=== PATIENT | male | born 1955 | race Caucasian/White ===

== ENCOUNTER 2017-08-11 16:53 | Emergency (ER) | payer OTHER ==
[~2017-08-11] VITALS: Ht 175.3 cm; Wt 63.5 kg
[~2017-08-11 16:53] MED LIST: ASPIRIN81 M4 PO; ATORVASTATIN CA80 M1 PO; BRILINTA90 M1 PO; LISINOPRIL5 M1 PO; PANTOPRAZOLE SO40 M1 PO; TOPROL XL50 M1 PO
[2017-08-11 17:01] VITALS: BP 123/78
--- NOTE | 2017-08-11 17:01 | ED MVC/FALL/TRAUMA COMPLAINT ---
History of Present Illness General Chief Complaint: Fall Stated Complaint: BIBA TRIP AND FALL Source: patient, family Exam Limitations: no limitations Vital Signs & Intake/Output Vital Signs & Intake/Output Vital Signs Date Time Temp Pulse Resp B/P B/P Pulse O2 O2 Flow FiO2 Mean Ox Delivery Rate 08/11 1721 Room Air 08/11 1701 97.2 84 18 123/78 96 Room Air Allergies Coded Allergies: No Known Allergies (06/27/17) Reconcile Medications Aspirin (Aspirin*) 81 MG TAB.CHEW 1 TAB PO DAILY HEART HEALTH (Reported) Atorvastatin Calcium 80 MG TABLET 1 TAB PO DAILY AK (Reported) Lisinopril 5 MG TABLET 1 TAB PO DAILY (Reported) Metoprolol Succ XL (Toprol Xl) 50 MG TAB 1 TAB PO DAILY (Reported) Pantoprazole Sodium 40 MG TABLET.DR 1 TAB PO DAILY GERD (Reported) Ticagrelor (Brilinta) 90 MG TABLET 1 TAB PO BID AK (Reported) Triage Note: PT BIBA FROM HOME S/P TRIP AND FALL DOWN A FEW STEPS THIS AM. PT HIT HEAD, DENIES LOC, PT ON BRILINTA. NO ACTIVE BLEEDING NOTED. NEUROS INTACT. PT DENIES HEAD/NECK PAIN. COLLARED BY EMS. +ETOH, PT REPORTS HAD A FEW BEERS TODAY. Triage Nurses Notes Reviewed? yes Onset: Abrupt Duration: hour(s): (6) Timing: no prior history Severity: mild Severity Numbers: 5 Injuries/Fall Location: head, lower extremity Method of Injury: fall Loss of Consciousness: no loss of consciousness Modifying Factors: Worsens With: movement, palpation. HPI: Patient is a 7-year-old male with recent history of CVA and heart attack presenting to the emergency department complaint of fall this morning. Patient reports that he was going outside to feed his cat and accidentally tripped over one step. Landing directly on his head on the right side. Patient does take Proventil daily. He was applying ice all day. Decided to call his doctor and his doctor recommended him coming in for evaluation secondary to the fall. Patient denies any LOC with the fall. No nausea vomiting fevers chills chest pain or shortness of breath. Denies any visual changes. Denies neck pain or back pain. Denies taking anything specific for the discomfort prior to arrival. No fevers or chills. (Queenie MCCRACKEN,Adriana) Past History Travel History Traveled to [place] past 21 day No Medical History Any Pertinent Medical History? see below for history Neurological: NONE EENT: NONE Cardiovascular: myocardial infarction, PVD Respiratory: NONE Gastrointestinal: NONE Hepatic: NONE Renal: NONE Musculoskeletal: fracture, C-SPINE FX 1996 W/REPAIR Psychiatric: NONE Endocrine: NONE Blood Disorders: NONE Cancer(s): NONE DENTAL LAB TECHNICIAN/Reproductive: NONE History of MRSA: No History of VRE: No History of CDIFF: No Influenza Vaccine: 04/14/17 Surgical History Surgical History: C-SPINE SURGERY 1996 Psychosocial History Who do you live with Spouse What is your primary language Belarusian Family History Hx Contributory? No (Adriana Richardson) Review of Systems Review of Systems Constitutional: Reports: no symptoms. Comments Review of systems: See HPI, All other systems negative. Constitutional, no chills fever or weight loss HEENT: No visual changes no sore throat no congestion Cardiovascular: No chest pain ,palpitation , orthopnea or ankle swelling Skin, no jaundice no rashes Respiratory: No dyspnea cough sputum or hemoptysis GI: No nausea no vomiting Muscle skeletal: no back pain, no neck pain, Neurologic: No numbness no confusion Psych: No stress anxiety or depression,. Heme/endocrine: No bruising no bleeding no polyuria or polydipsia Immunology: No splenectomy or history of AIDS (Adriana Richardson) Physical Exam Physical Exam General Appearance: well developed/nourished, no apparent distress, alert, awake , comfortable Comments: Well-developed well-nourished person in no acute distress, smells of tobacco HEENT: extraocular motion intact, no nystagmus. Pupils equally round and reactive to light and accommodation. Nose is atraumatic. External auditory canal and Tympanic membranes clear. Pharynx normal. No swelling or edema. Large hematoma approximately 8 cm in size noted over the right tonsil lobe. Mildly tender to palpation. No step-off deformities palpated on the rest of the scalp. Neck: Supple, no lymphadenopathy, normal range of motion without pain or tenderness in c-collar, no palpable pain through the c-collar over the C-spine. Back: Nontender, no step-off deformities palpated over the thoracic or lumbar spine. Cardiovascular: Regular rate and rhythms no murmurs rubs or gallops, normal JVP Respiratory: No respiratory distress.breath sounds clear to auscultation bilaterally Extremity: No edema, no calf tenderness to palpation, normal and equal pulses. Full range of motion of upper and lower extremities without difficulty or pain. [employer] Team Leader strength is equal and symmetric bilaterally. Neuro: Alert oriented x3, motor sensory normal, cranial nerves II through XII grossly intact. Cerebellar testing is unremarkable. Skin: see heent. Superficial abrasion noted over the right pena approximately 3 cm in size. No surrounding erythema or edema. Nontender to palpation. Psych: Mood and affect is normal, memory and judgment is normal. Core Measures ACS in differential dx? No CVA/TIA Diagnosis No Sepsis Present: No Sepsis Focused Exam Completed? No (Queenie MCCRAKCEN,Adriana) Progress Differential Diagnosis: ICH, skull fx, c spine fx, concussion, minor head injury Plan of Care: Orders Procedure Date/time Status CT HEAD WO IV CONTRAST 08/[address] CERV SPINE WO IV CONTRAST 08/11 1700 Active Patient educated on smoking cessation. Diagnostic Imaging: Viewed by Me: CT Scan. Discussed w/RAD: CT Scan. Radiology Impression: PATIENT: CARL CONNOR PRESENT AGE: 61 PATIENT ACCOUNT NO: [id number] : 56 LOCATION: [facility] ORDERING PHYSICIAN: Adriana MCCRACKEN SERVICE DATE: 08/11/17 EXAM TYPE: CAT - CT CERV SPINE WO IV CONTRAST; CT HEAD WO IV CONTRAST EXAMINATIONS: CT HEAD WITHOUT CONTRAST AND CT CERVICAL SPINE WITHOUT CONTRAST CLINICAL INFORMATION: Head strike. Right-sided hematoma. On Brilinta. COMPARISON: CT angiogram 06/27/2017 TECHNIQUE: Contiguous helical images of the brain were obtained without IV contrast. Contiguous helical images of the cervical spine were obtained without IV contrast. Multiplanar reconstructions were performed. DLP: 959 mGy-cm FINDINGS: There is a right-sided frontal to parietal subgaleal hematoma measuring 7.1 x 0.6 cm without associated fracture. The lateral, third, fourth ventricles are nondilated and concordant with the appearance of the sulci. There is no evidence for acute intraparenchymal hemorrhage or acute infarct. There is a new area of Ancef malacia within the left medial aspect of the cerebellum consistent with history of PICA infarct. There is neither mass nor mass effect. There is no shift of midline structures. The paranasal sinuses and mastoid air cells are clear. There are no osseous lesions. There is no prevertebral soft tissue swelling. Relationship between the lateral masses of C1 and the odontoid process of C2 is within normal range. Multilevel degenerative changes are present. There is fusion of the C5 and C6 vertebral bodies. There is loss of the normal intervertebral disc space at the C4-C5 level with endplate changes and anterior osteophytes. There is slight widening of the anterior interspace likely related to the osseous fusion of the vertebral bodies inferior to this level. There is mild to moderate narrowing at the C6-C7 level with endplate changes including small anterior and posterior osteophytes. No acute fracture or subluxation. There is moderately severe diffuse centrilobular emphysematous changes at the lung apices. Thyroid gland appears within normal range. There is no cervical lymphadenopathy. The visualized lung apices are clear. IMPRESSION: 1. No acute intracranial hemorrhage. 2. 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 3. Large right sided subgaleal hematoma without associated fracture. 4. No acute fracture or subluxation of the cervical spine. Multilevel mild to moderate cervical spondylosis including bony fusion of the C5 and C6 vertebral bodies. DICTATED BY: Yamilex Jamil MD DATE/TIME DICTATED:08/11/171723 SEAM FELLER:JOHNNY DATE/TIME TRANSCRIBED:08/11/171723 CONFIDENTIAL, DO NOT COPY WITHOUT APPROPRIATE AUTHORIZATION. <Electronically signed in Other Vendor System> SIGNED BY: Yamilex Jamil MD 08/11/17 173 (Adriana Richardson) Departure Departure Time of Disposition: 1741 Disposition: HOME OR SELF CARE Condition: Stable Clinical Impression Primary Impression: Minor head injury Qualifiers: Encounter type: initial encounter Qualified Code: S00.90XA - Unspecified superficial injury of unspecified part of head, initial encounter Secondary Impressions: Hematoma, Tobacco abuse Referrals: Faye Childs APRN (PCP/Family) Additional Instructions: Follow-up with your primary care physician tomorrow, call to make an appointment. Apply ice to affected area. Return if he develop any headaches, confusion, nausea worsening symptoms or concerns. PATIENT: CARL CONNOR PRESENT AGE: 61 PATIENT ACCOUNT NO: [id number] : 56 LOCATION: [facility] ORDERING PHYSICIAN: Adriana MCCRACKEN SERVICE DATE: 08/11/17170 EXAM TYPE: CAT - CT CERV SPINE WO IV CONTRAST; CT HEAD WO IV CONTRAST EXAMINATIONS: CT HEAD WITHOUT CONTRAST AND CT CERVICAL SPINE WITHOUT CONTRAST CLINICAL INFORMATION: Head strike. Right-sided hematoma. On Brilinta. COMPARISON: CT angiogram 06/27/2017 TECHNIQUE: Contiguous helical images of the brain were obtained without IV contrast. Contiguous helical images of the cervical spine were obtained without IV contrast. Multiplanar reconstructions were performed. DLP: 959 mGy-cm FINDINGS: There is a right-sided frontal to parietal subgaleal hematoma measuring 7.1 x 0.6 cm without associated fracture. The lateral, third, fourth ventricles are nondilated and concordant with the appearance of the sulci. There is no evidence for acute intraparenchymal hemorrhage or acute infarct. There is a new area of Ancef malacia within the left medial aspect of the cerebellum consistent with history of PICA infarct. There is neither mass nor mass effect. There is no shift of midline structures. The paranasal sinuses and mastoid air cells are clear. There are no osseous lesions. There is no prevertebral soft tissue swelling. Relationship between the lateral masses of C1 and the odontoid process of C2 is within normal range. Multilevel degenerative changes are present. There is fusion of the C5 and C6 vertebral bodies. There is loss of the normal intervertebral disc space at the C4-C5 level with endplate changes and anterior osteophytes. There is slight widening of the anterior interspace likely related to the osseous fusion of the vertebral bodies inferior to this level. There is mild to moderate narrowing at the C6-C7 level with endplate changes including small anterior and posterior osteophytes. No acute fracture or subluxation. There is moderately severe diffuse centrilobular emphysematous changes at the lung apices. Thyroid gland appears within normal range. There is no cervical lymphadenopathy. The visualized lung apices are clear. IMPRESSION: 1. No acute intracranial hemorrhage. 2. 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 3. Large right sided subgaleal hematoma without associated fracture. 4. No acute fracture or subluxation of the cervical spine. Multilevel mild to moderate cervical spondylosis including bony fusion of the C5 and C6 vertebral bodies. DICTATED BY: Yamilex Jamil MD DATE/TIME DICTATED:08/11/171723 SEAM FELLER:JOHNNY DATE/TIME TRANSCRIBED:08/11/171723 CONFIDENTIAL, DO NOT COPY WITHOUT APPROPRIATE AUTHORIZATION. <Electronically signed in Other Vendor System> SIGNED BY: Yamilex Jamil MD 08/11/171735 Departure Forms: Customer Survey General Discharge Information (Adriana Richardson) PA/INVESTMENT STRATEGIST Co-Sign Statement Statement: ED Attending supervision documentation- x I saw and evaluated the patient. I have also reviewed all the pertinent lab results and diagnostic results. I agree with the findings and the plan of care as documented in the PA's/INVESTMENT STRATEGIST's documentation. [] I have reviewed the ED Record and agree with the PA's/INVESTMENT STRATEGIST's documentation. [] Additions or exceptions (if any) to the PAs/INVESTMENT STRATEGIST's note and plan are summarized below: [] (Denny WARNER,Taurus)
--- NOTE | 2017-08-11 17:36 | CT SCAN REPORT ---
EXAMINATIONS: CT HEAD WITHOUT CONTRAST AND CT CERVICAL SPINE WITHOUT CONTRAST CLINICAL INFORMATION: Head strike. Right-sided hematoma. On Brilinta. COMPARISON: CT angiogram 06/27/2017 TECHNIQUE: Contiguous helical images of the brain were obtained without IV contrast. Contiguous helical images of the cervical spine were obtained without IV contrast. Multiplanar reconstructions were performed. DLP: 959 mGy-cm FINDINGS: There is a right-sided frontal to parietal subgaleal hematoma measuring 7.1 x 0.6 cm without associated fracture. The lateral, third, fourth ventricles are nondilated and concordant with the appearance of the sulci. There is no evidence for acute intraparenchymal hemorrhage or acute infarct. There is a new area of Ancef malacia within the left medial aspect of the cerebellum consistent with history of PICA infarct. There is neither mass nor mass effect. There is no shift of midline structures. The paranasal sinuses and mastoid air cells are clear. There are no osseous lesions. There is no prevertebral soft tissue swelling. Relationship between the lateral masses of C1 and the odontoid process of C2 is within normal range. Multilevel degenerative changes are present. There is fusion of the C5 and C6 vertebral bodies. There is loss of the normal intervertebral disc space at the C4-C5 level with endplate changes and anterior osteophytes. There is slight widening of the anterior interspace likely related to the osseous fusion of the vertebral bodies inferior to this level. There is mild to moderate narrowing at the C6-C7 level with endplate changes including small anterior and posterior osteophytes. No acute fracture or subluxation. There is moderately severe diffuse centrilobular emphysematous changes at the lung apices. Thyroid gland appears within normal range. There is no cervical lymphadenopathy. The visualized lung apices are clear. IMPRESSION: 1. No acute intracranial hemorrhage. 2. 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 3. Large right sided subgaleal hematoma without associated fracture. 4. No acute fracture or subluxation of the cervical spine. Multilevel mild to moderate cervical spondylosis including bony fusion of the C5 and C6 vertebral bodies.
== END 2017-08-11 17:51 ==
LOC: ERH 16:53
DX: S09.90XA Unspecified injury of head, initial encounter (principal); T14.8XXA Other injury of unspecified body region, initial encounter; Z72.0 Tobacco use; W18.09XA Striking against other object with subsequent fall, initial encounter; Y93.01 Activity, walking, marching and hiking; Y92.9 Unspecified place or not applicable